=== PATIENT | female | born 2000 | race Hispanic/Latino ===

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

== ENCOUNTER 2022-02-05 08:27 | Emergency (ER) | payer OTHER ==
[~2022-02-05] VITALS: Ht 160 cm; Wt 38.6 kg
[2022-02-05] MEDS ORDERED: FLUORESCEIN OPHTH 1 MG STRIP OD ONE (09:15)
[2022-02-05] MEDS ORDERED: PROPARACAINE 0.5% OPHTH SOL 15ML OD ONE (09:15)
[2022-02-05] MEDS ORDERED: OCUF0.25 OD (10:03)
[2022-02-05 10:31] VITALS: BP 119/78
== END 2022-02-05 10:30 | disposition home or self-care (01) ==
LOC: M ED 08:27
DX: S05.01XA Injury of conjunctiva and corneal abrasion without foreign body, right eye, initial encounter (principal); Y93.9 Activity, unspecified; Y92.9 Unspecified place or not applicable

== ENCOUNTER 2022-02-06 00:55 | Emergency (ER) | payer OTHER ==
[~2022-02-06] VITALS: Ht 160 cm; Wt 38.6 kg
[~2022-02-06 00:55] MED LIST changes: -METHACHOLINE KIT (J7674) INH ONE; +OCUF0.25 OD
[2022-02-06 06:35] VITALS: BP 114/57
== END 2022-02-06 06:55 | disposition home or self-care (01) ==
LOC: M ED 00:55
DX: S50.02XA Contusion of left elbow, initial encounter (principal); V48.0XXA Car driver injured in noncollision transport accident in nontraffic accident, initial encounter; Y92.410 Unspecified street and highway as the place of occurrence of the external cause; Y93.9 Activity, unspecified; Y99.9 Unspecified external cause status

== ENCOUNTER 2022-10-07 15:40 | Emergency (ER) | payer OTHER, SELFPAY ==
[~2022-10-07] VITALS: Ht 157.5 cm; Wt 39.6 kg
[2022-10-07 17:08] LABS: HEMATOCRIT 33.2 % (36.0-47.0); HEMOGLOBIN 10.9 g/dl (12.0-15.5); MEAN CORPUSCULAR HEMOGLOBIN 27.5 pg (27.0-33.0); MEAN CORPUSCULAR HGB CONC 32.8 g/dl (32.0-36.5); MEAN CORPUSCULAR VOLUME 83.8 fl (80.0-96.0); PLATELET COUNT, AUTOMATED 243 10^3/uL (150-450); RED BLOOD COUNT 3.96 10^6/uL (4.00-5.40); WHITE BLOOD COUNT 5.2 10^3/uL (4.0-10.0)
[2022-10-07 17:35] LABS: ETHYL ALCOHOL (ETHANOL) < 0.003 % (0.000-0.010)
[2022-10-07 17:36] LABS: ACETAMINOPHEN LEVEL < 2.0 UG/ML (10.0-20.0)
[2022-10-07 17:37] LABS: SALICYLATE LEVEL < 3.0 MG/DL (<30)
[2022-10-07 17:38] LABS: ALKALINE PHOSPHATASE 58 U/L (46-116); ALT/SGPT 10 U/L (7.0-40); AST/SGOT 17 U/L (<34); BILIRUBIN,DIRECT 0.5 MG/DL (<0.4); BILIRUBIN,TOTAL 1.7 MG/DL (0.3-1.2); BLOOD UREA NITROGEN 9 MG/DL (9-23); CALCIUM LEVEL 8.9 MG/DL (8.5-10.1); CARBON DIOXIDE LEVEL 24 MMOL/L (20-31); CHLORIDE LEVEL 108 MMOL/L (98-107); CREATININE FOR GFR 0.48 MG/DL (0.55-1.30); GLOMERULAR FILTRATION RATE > 60.0 (>60); GLUCOSE, FASTING 87 MG/DL (60-100); POTASSIUM SERUM 3.4 MMOL/L (3.5-5.1); SODIUM LEVEL 138 MMOL/L (136-145); THYROID STIMULATING HORMONE 0.668 uIU/ML (0.55-4.78)
[2022-10-07 18:29] LABS: HCG, SERUM QUALITATIVE NEGATIVE (NEGATIVE)
[2022-10-07] MEDS ORDERED: POTASSIUM CHLORIDE 10MEQ SR TABLET PO ONE (18:35)
[2022-10-07] MEDS ORDERED: VITMTA PO (19:26)
[2022-10-07] MEDS ORDERED: LORA-930 PO (19:26)
[2022-10-07] MEDS ORDERED: IBUP-1764 PO (19:26)
[2022-10-07] MEDS ORDERED: FLUT15.820 NARES (19:26)
[2022-10-07] MEDS ORDERED: HOME MED LIST COMPLETE! XX SCH (19:30)
[2022-10-07 21:06] LABS: TOTAL PROTEIN 7.1 G/DL (5.7-8.2)
[2022-10-07 21:07] LABS: PHENCYCLIDINE URINE NEGATIVE (NEGATIVE)
[2022-10-07 21:08] LABS: AMPHETAMINES LEVEL URINE NEGATIVE (NEGATIVE); BARBITURATES URINE NEGATIVE (NEGATIVE); BENZODIAZEPINES URINE NEGATIVE (NEGATIVE); COCAINE METABOLITE URINE NEGATIVE (NEGATIVE); METHADONE URINE NEGATIVE (NEGATIVE); OPIATES URINE NEGATIVE (NEGATIVE)
[2022-10-07 21:10] LABS: CANNABINOIDS URINE POSITIVE (NEGATIVE)
[2022-10-07 23:31] VITALS: BP 103/64
== END 2022-10-07 23:32 | disposition home or self-care (01) ==
LOC: M ED 15:40
DX: Z04.6 Encounter for general psychiatric examination, requested by authority (principal); F17.200 Nicotine dependence, unspecified, uncomplicated

== ENCOUNTER 2023-02-04 08:41 | Emergency (ER) | payer OTHER, SELFPAY ==
[~2023-02-04] VITALS: Ht 157.5 cm; Wt 41.7 kg
[~2023-02-04 08:41] MED LIST changes: +FLUT15.820 NARES; +IBUP-1764 PO; +LORA-930 PO; +VITMTA PO
[2023-02-04] MEDS ORDERED: ETON68IM SC (09:03)
[2023-02-04] MEDS ORDERED: SERT50TA29 (09:03)
[2023-02-04] MEDS ORDERED: FLUT50SP17 (09:03)
[2023-02-04] MEDS ORDERED: RIZA10TA2 (09:03)
[2023-02-04 11:50] LABS: BASO % 0.7 % (0.0-1.0); EOS % 0.5 % (0.0-3.0); HEMATOCRIT 36.3 % (36.0-47.0); HEMOGLOBIN 11.5 g/dl (12.0-15.5); LYMPH # 1.8 10^3/uL (1.5-5.0); LYMPH % 43.9 % (24.0-44.0); MEAN CORPUSCULAR HEMOGLOBIN 26.3 pg (27.0-33.0); MEAN CORPUSCULAR HGB CONC 31.7 g/dl (32.0-36.5); MEAN CORPUSCULAR VOLUME 82.9 fl (80.0-96.0); MONO # 0.3 10^3/uL (0.0-0.8); MONO % 6.6 % (2.0-8.0); NEUTROPHILS % 48.1 % (36.0-66.0); PLATELET COUNT, AUTOMATED 270 10^3/uL (150-450); RED BLOOD COUNT 4.38 10^6/uL (4.00-5.40); WHITE BLOOD COUNT 4.1 10^3/uL (4.0-10.0)
[2023-02-04] MEDS ORDERED: NS 1,000 ML IV ONE (12:00)
[2023-02-04] MEDS ORDERED: diphenhydrAMINE 50MG/ML VIAL IV ONE (12:00)
[2023-02-04] MEDS ORDERED: ONDANSETRON 4MG 2ML VIAL IV ONE (12:00)
[2023-02-04] MEDS ORDERED: KETOROLAC 30 MG/ML 1ML VIAL IV ONE (12:00)
[2023-02-04 13:45] VITALS: BP 127/74; TEMP 97; O2SAT 99
== END 2023-02-04 13:47 | disposition home or self-care (01) ==
LOC: M ED 08:41
DX: G43.909 Migraine, unspecified, not intractable, without status migrainosus (principal); J45.909 Unspecified asthma, uncomplicated; F41.9 Anxiety disorder, unspecified; F17.200 Nicotine dependence, unspecified, uncomplicated; F12.10 Cannabis abuse, uncomplicated; Z79.52 Long term (current) use of systemic steroids; Z79.899 Other long term (current) drug therapy
CPT/HCPCS: 70450; 72125; 80047; 83735; 84702; 85025; 96361; 96374; 96375; 99284; J1200; J1885; J2405